=== PATIENT | female | born 1945 | race Caucasian/White ===

== ENCOUNTER 2022-10-19 06:24 | Day surgery (SDC) | payer MEDICARE ==
[2022-10-19] MEDS ORDERED: Lactated Ringers 1,000 ML IV SCH (07:00)
[2022-10-19] MEDS ORDERED: fentaNYL 50 MCG/ML SDV ONE (07:06)
[2022-10-19] MEDS ORDERED: Propofol 200 MG/20 ML SDV ONE ×2 (07:06→08:00)
== END 2022-10-19 09:59 | disposition home or self-care (01) ==
LOC: JP.SDS 06:24
PROVIDERS: ATTEND Student in an Organized Health Care Education/Training Program
DX: K57.30 Diverticulosis of large intestine without perforation or abscess without bleeding (principal); Z79.899 Other long term (current) drug therapy; Z88.5 Allergy status to narcotic agent
CPT/HCPCS: 45380; J2704; J3010; J7120